=== PATIENT | male | born 1950 | race Two or more races ===

== ENCOUNTER 2018-09-09 15:11 | Emergency (ER) | payer MEDICAID, MEDICARE, OTHER ==
[~2018-09-09] VITALS: Ht 172.7 cm; Wt 68.0 kg
[~2018-09-09 15:11] MED LIST: MECLIZINE HCL25 MG ORAL; NKM; UNOBMED; depression med
--- NOTE | 2018-09-09 15:58 | Emergency Room Report ---
History of Present Illness General Chief Complaint: Upper Respiratory Illness Source: Patient Present Illness HPI 67-year-old male patient presents ER complaining of cough for the past 2 weeks. Reports cough with sputum. Denies hemoptysis. Denies chest pain or shortness of breath at rest. Reports chest pain with coughing, states it is reproducible. Denies history of [place] or stroke. Denies history of heart problems. Denies history of asthma. Denies difficulty breathing. Reports sore throat and earache during this time. Reports not been taking medication for relief of symptoms. Reports history of smoking. Denies other aggravating or relieving factors. Reports swelling is worse at night. Denies generalized muscle aches and pains. Denies fever. Reports saw his primary care provider 1 week ago and had cardiac workup, states cardiac workup was negative. Reports primary care doctor did not give him any medication for the cough symptoms. Allergies: Coded Allergies: No Known Allergies (Verified Allergy, Unknown, 01/09/11) Patient History Past Medical History: see triage record Reviewed Nursing Documentation: PMH: Agreed; PSxH: Agreed Nursing Documentation-PMH Past Medical History: No History, Except For Hx Cardiac Problems: Yes History Of Psychiatric Problem: Yes - depression Review of Systems All Other Systems: negative except mentioned in HPI Physical Exam Vital Signs Date Time Temp Pulse Resp B/P (MAP) Pulse Ox O2 Delivery O2 Flow Rate FiO2 09/09/18 15:23 97.9 65 17 129/70 97 Room Air Sp02 EP Interpretation: reviewed, normal General Appearance: well appearing, no apparent distress, alert, GCS 15, non- toxic Head: normocephalic, atraumatic Eyes: bilateral eye normal inspection, bilateral eye PERRL ENT: hearing grossly normal, normal pharynx, no angioedema, normal voice, TMs + canals normal, uvula midline, moist mucus membranes Neck: full range of motion, no meningismus, no bony tend Respiratory: lungs clear, normal breath sounds, no rhonchi, no respiratory distress, no accessory muscle use, no wheezing, speaking full sentences Cardiovascular #1: regular rate, rhythm, no edema Musculoskeletal: back normal, digits/nails normal, gait/station normal, normal range of motion, non-tender, no calf tenderness, Micah's Sign negative Neurologic: alert, oriented x3, responsive, motor strength/tone normal, sensory intact Psychiatric: mood/affect normal Skin: no rash Medical Decision Making PA Attestation Dr. Galvan is my supervising Physician whom patient management has been discussed with. Diagnostic Impression: Primary Impression: Upper respiratory infection ER Course Pt presents to ED c/o cough and sore throat x2 weeks. DDX considered but are not limited to influenza, viral URI, pneumonia, strep throat, rhinitis, sinusitis, otitis media, otitis externa. VITAL SIGNS are WNL, patient is afebrile. ER COURSE: Provided with suman jimenez in the ER. Lungs clear to auscultation, no wheezes, rhonci or rales. patient afebrile. Low suspicion for pneumonia CXR negative for acute disease. no tonsillar exudates, no pharyngeal erythema, history of cough, no fever, no stridor, uvula midline, low suspicion for peritonsillar abscess. Likely viral etiology of symptoms. Symptomatic treatment. drink plenty of fluids. Salt water gargles for sore throat. Followup with PCP for further treatment and/or referral as needed. Patient reports symptoms improved while in the ER. ER precautions given. DISCHARGE: At this time pt is stable for d/c to home. Patient is resting comfortably, in no acute distress, nontoxic appearing. Patient to take medications as instructed Will provide with patient care instructions and any necessary prescriptions. Care plan and follow-up instructions provided. Patient instructed to follow-up with primary care provider in 3 - 5 days. Patient questions asked and answered. Patient reports understanding and agreement to treatment plan. ER precautions given. Patient instructed to return to ER immediately for any new or worsening of symptoms including but not limited to increasing SOB, persistent fever, intractable vomiting. - Please note that this Emergency Department Report was dictated using [employer] sash and frame carpenter technology software, occasionally this can lead to erroneous entry secondary to interpretation by the dictation equipment. Chest X-Ray Diagnostic Results Chest X-Ray Diagnostic Results : Chest X-Ray Ordered: Yes # of Views/Limited/Complete: 1 View Indication: Chest Pain EP Interpretation: Yes ROLANDO Xray: Interpretation reviewed, by supervising MD, and agrees with findings. Interpretation: no consolidation, no effusion, no pneumothorax, no acute cardiopulmonary disease Impression: No acute disease ROLANDO ScribNeel Aragon PA-C Last Vital Signs Date Time Temp Pulse Resp B/P (MAP) Pulse Ox O2 Delivery O2 Flow Rate FiO2 09/09/18 15:23 97.9 65 17 129/70 97 Room Air Status: improved Disposition: HOME, SELF-CARE Condition: Stable Scripts Benzonatate* (SUMAN LYNSEY*) 100 Mg Capsule 100 MG ORAL THREE TIMES A DAY, #20 PERLE Prov: Eyal Aragon 09/09/18 D-Methorphan/PE/Acetaminophen (Sudafed PE Pressure+Pain+Cough) 1 Each Tablet 1 EACH PO TID, #24 TAB Prov: Eyal Aragon 09/09/18 Patient Instructions: Upper Respiratory Infection, Adult Additional Instructions: Followup with primary care provider in 3 -5 days. Discuss further treatment and referral to pulmonology at that time. Take medications as directed. Don;t smoke cigarettes. Patient questions asked and answered. ER precautions given, patient instructed to return to ER immediately for any new or worsening of symptoms. Eyla Aragon Sep 09, 2018 15:58
[2018-09-09] MEDS ORDERED: Benzonatate 100mg Perles ORAL ONE (16:00)
--- NOTE | 2018-09-09 16:20 | NUR ---
ED Nurse Note: patient walked into ED c/o coughing sore throat and chest congestion for 2 weeks
--- NOTE | 2018-09-09 16:23 | Diagnostic Imaging Report ---
Indication: Cough Comparison: 02/21/2015 A single view chest radiograph was obtained. Findings: Cardiomediastinal appearance is within normal limits for age. The lungs are clear. Pulmonary vascularity is appropriate. The diaphragmatic contour is smooth and costophrenic angles are sharp. No pleural effusions are identified. The bones are unremarkable. Impression: No acute findings
[2018-09-09] MEDS ORDERED: TESSALON PERLE100 MG ORAL (16:55)
[2018-09-09] MEDS ORDERED: SUDAFED PE PRE1 EACH PO (16:55)
[2018-09-09 17:14] VITALS: BP 129/70
[2018-09-09 17:15] VITALS: BP 129/70
--- NOTE | 2018-09-09 17:16 | NUR ---
ED Nurse Note: Pt is cleared for discharge per ER PA Discharge instrcution/paper/ prescription given and explained to the patient, patient verbalized understanding. pt is alert and oriented x4, ambulated out of ED steady gait with all belongigns. pt is stable for DC. VSS. pt ID band removed.
== END 2018-09-09 17:16 | disposition home or self-care (01) ==
LOC: EMR 16:40
DX: J06.9 Acute upper respiratory infection, unspecified (principal)
CPT/HCPCS: 71045; 99283

== ENCOUNTER 2019-10-11 16:05 | Emergency (ER) | payer MEDICARE, OTHER ==
[~2019-10-11] VITALS: Ht 175.3 cm; Wt 68.0 kg
[~2019-10-11 16:05] MED LIST changes: +SUDAFED PE PRE1 EACH PO; +TESSALON PERLE100 MG ORAL
[2019-10-11 16:22] VITALS: BP 143/75
--- NOTE | 2019-10-11 16:32 | NUR ---
ED Nurse Note: Pt from home walked in due to nasal congestion, fever and coughing x 1 week. Pt denies any pain. Tamiflu taken this morning. AAO x4, ambulatory with non labored breathing. Son at the bed side.
--- NOTE | 2019-10-11 16:43 | NUR ---
ED Nurse Note: Flu swab sent to lab.
--- NOTE | 2019-10-11 17:03 | Emergency Room Report ---
History of Present Illness General Chief Complaint: Flu Like Symptoms Source: Patient Present Illness HPI 69-year-old male with no significant past medical history here complaining of 1 week of cough and congestion. Complains of phlegm production, denying any fever and chills. Denies recent travel, coming contact with people who have recently traveled. Denies sore throat, earache, abdominal pain, nausea vomiting. Patient reports that he smokes tobacco on daily basis. Denies other drug use, alcohol intake. Denies any past medical history. Sitting comfortably with stable vital signs. Denies any chest pain or chest pain radiation. Allergies: Coded Allergies: No Known Allergies (Verified Allergy, Unknown, 01/09/11) Patient History Past Medical History: see triage record Past Surgical History: none Pertinent Family History: none Social History: Reports: smoking Immunizations: UTD Reviewed Nursing Documentation: PMH: Agreed; PSxH: Agreed Nursing Documentation-PM Past Medical History: No Stated History Hx Cardiac Problems: Yes Review of Systems All Other Systems: negative except mentioned in HPI Physical Exam Vital Signs Date Time Temp Pulse Resp B/P (MAP) Pulse Ox O2 Delivery O2 Flow Rate FiO2 10/11/19 16:22 98.1 61 16 143/75 92 Room Air Sp02 EP Interpretation: reviewed, normal General Appearance: no apparent distress, alert, GCS 15, non-toxic Head: normocephalic, atraumatic Eyes: bilateral eye normal inspection, bilateral eye PERRL ENT: hearing grossly normal, normal pharynx, no angioedema, normal voice Neck: full range of motion, supple, no meningismus, no bony tend, supple/symm/ no masses Respiratory: chest non-tender, lungs clear, normal breath sounds, no rhonchi, no retraction, no wheezing, speaking full sentences Cardiovascular #1: regular rate, rhythm, no edema, no murmur, normal capillary refill Gastrointestinal: normal bowel sounds, non tender, soft, non-distended, no guarding, no rebound Rectal: deferred Genitourinary: no CVA tenderness Musculoskeletal: back normal, no calf tenderness Neurologic: alert, motor strength/tone normal, oriented x3, sensory intact, responsive, speech normal Psychiatric: judgement/insight normal, memory normal, mood/affect normal, no suicidal/homicidal ideation Skin: no rash Lymphatic: no adenopathy Medical Decision Making PA Attestation All my diagnosis and treatment plans were reviewed ad discussed with my supervising physician Dr. Galvan Diagnostic Impression: Primary Impression: Pneumonitis ER Course 69-year-old male with no significant past medical history here complaining of 1 week of cough and congestion. Complains of phlegm production, denying any fever and chills. Denies recent travel, coming contact with people who have recently traveled. Denies sore throat, earache, abdominal pain, nausea vomiting. Patient reports that he smokes tobacco on daily basis. Denies other drug use, alcohol intake. Denies any past medical history. Sitting comfortably with stable vital signs. Denies any chest pain or chest pain radiation. Ddx considered but are not limited to: bronchitis, PNA, URI viral, bacterial bronchitis, pneumonitis Vital signs: are WNL, pt. is afebrile H&PE are most consistent with: Pneumonitis ORDERS: Chest x-ray, azithromycin, albuterol, Phenergan DM for nighttime, guaifenesin for daytime ED INTERVENTIONS: None required at this time. DISCHARGE: At this time pt. is stable for d/c to home. Will provide printed patient care instructions, and any necessary prescriptions. Care plan and follow up instructions have been discussed with the patient prior to discharge. Take medication as directed, follow-up with your primary care provider, increase oral hydration, if worsening symptoms return to the emergency room Chest X-Ray Diagnostic Results Chest X-Ray Diagnostic Results : Chest X-Ray Ordered: Yes # of Views/Limited/Complete: 1 View Indication: Other - Cough EP Interpretation: Yes PA Xray: Interpretation reviewed, by supervising MD, and agrees with findings. Interpretation: no consolidation, no effusion, no pneumothorax Impression: No acute disease Electronically Signed by: Soledad Bernstein PA-C Last Vital Signs Date Time Temp Pulse Resp B/P (MAP) Pulse Ox O2 Delivery O2 Flow Rate FiO2 10/11/19 16:32 75 17 Room Air 10/11/19 16:22 98.1 143/75 (97) 92 Disposition: HOME, SELF-CARE Condition: Stable Scripts Fluticasone Propionate (Flonase Allergy Relief) 9.9 Ml [place].susp 2 SPRAY NS BID, #10 ML Prov: Soledad Lamar 10/11/19 Guaifenesin* (GUAIFENESIN*) 100 Mg/5 Ml Liquid 5 ML ORAL Q6H, #120 ML 0 Refills Prov: Soledad Lamar 10/11/19 D-Methorphan Hb/Prometh Hcl* (PROMETHAZINE-DM SYRUP*) 118 Ml Syrup 5 ML ORAL BEDTIME PRN for For Cough, #100 ML 0 Refills Prov: Soledad Lamar 10/11/19 Azithromycin* (ZITHROMAX*) 250 Mg Tablet 250 MG ORAL DAILY, #6 TAB 0 Refills Take two tables once daily for 1 day, then one tablet once daily for 4 days. Prov: Soledad Lamar 10/11/19 Patient Instructions: Pneumonitis Additional Instructions: Take medication as directed, follow-up with your primary care provider, increase oral hydration, refrain from smoking, if worsening symptoms return to the emergency room Soledad Lamar Oct 11, 2019 17:03
[2019-10-11] MEDS ORDERED: FLONASE ALLERG9.9 ML NS (17:05)
[2019-10-11] MEDS ORDERED: PROMETHAZINE-D118 ML ORAL (17:05)
[2019-10-11] MEDS ORDERED: ZITHROMAX250 MG ORAL (17:05)
[2019-10-11] MEDS ORDERED: GUAIFENESI100 MG/5 M ORAL (17:05)
[2019-10-11 17:09] VITALS: BP 145/82
--- NOTE | 2019-10-11 17:09 | NUR ---
ER DISCHARGE NOTE: Patient is cleared to be discharged per ERMD, pt is aox4, on room air, with stable vital signs. pt was given dc and prescription instructions, pt was able to verbalize understanding, pt id band removed without complications. pt is able to ambulate with steady gait. pt took all belongings and left with his son.
--- NOTE | 2019-10-12 12:35 | Diagnostic Imaging Report ---
Indication: Dyspnea Comparison: 09/09/2018 A single view chest radiograph was obtained. Findings: Cardiomediastinal appearance is within normal limits for age with a mildly calcified aorta. The lungs are clear. Pulmonary vascularity is appropriate. The diaphragmatic contour is smooth and costophrenic angles are sharp. No pleural effusions are identified. The bones are osteopenic. Impression: No acute findings
== END 2019-10-11 17:09 | disposition home or self-care (01) ==
LOC: EMR 17:02
DX: J18.9 Pneumonia, unspecified organism (principal); F17.200 Nicotine dependence, unspecified, uncomplicated
CPT/HCPCS: 71045; 99283